=== PATIENT | female | born 1990 | race Two or more races ===

== ENCOUNTER 2017-10-11 18:59 | Emergency (ER) | payer OTHER ==
[~2017-10-11] VITALS: Ht 157.5 cm; Wt 72.4 kg
[2017-10-11 19:56] LABS: MICROSCOPIC INDICATED
[2017-10-11 20:04] LABS: CULTURE INDICATED? YES
[2017-10-11 20:07] LABS: BASOPHILS # (AUTO) 0.13 x10^3/uL (0-0.1); BASOPHILS % (AUTO) 1 % (0-1); EOSINOPHILS # (AUTO) 0.17 x10^3/uL (0-0.4); EOSINOPHILS % (AUTO) 2 % (1-7); LYMPHOCYTES # (AUTO) 2.37 x10^3/uL (1-3.4); LYMPHOCYTES % (AUTO) 22 % (22-44); MD NO; MEAN CORPUSCULAR HEMOGLOBIN 27.8 pg (27.0-34.8); MEAN CORPUSCULAR HGB CONC 33.7 g/dL (32.4-35.8); MEAN CORPUSCULAR VOLUME 82.5 fL (80-100); MEAN PLATELET VOLUME 7.9 fL (7.4-10.4); MONOCYTES # (AUTO) 0.92 x10^3/uL (0.2-0.8); MONOCYTES % (AUTO) 9 % (2-9); NEUTROPHILS % (AUTO) 66 % (42-75); PLATELET COUNT 342 x10^3/uL (130-400); RED BLOOD COUNT 4.77 x10^6/uL (3.82-5.3); RED CELL DISTRIBUTION WIDTH 13.6 % (9.6-15.2)
[2017-10-11 20:18] LABS: ALBUMIN 4.1 g/dL (3.4-5.0); ANION GAP 5 mmol/L (5-15); CHLORIDE 107 mmol/L (98-107)
[2017-10-11 20:21] LABS: ALANINE AMINOTRANSFERASE 35 U/L (12-78); ALKALINE PHOSPHATASE 90 U/L (45-117); BILIRUBIN,TOTAL 0.7 mg/dL (0.2-1.0); CREATININE 0.68 mg/dL (0.55-1.02); TOTAL PROTEIN 7.8 g/dL (6.4-8.2)
[2017-10-11] MEDS ORDERED: ONDANSETRON 2MG/ML, 2ML ONE (20:40)
[2017-10-11] MEDS ORDERED: ONDANSETRON 2MG/ML, 2ML IVPush ONE (21:00)
[2017-10-11 21:29] VITALS: BP 114/64
== END 2017-10-11 21:31 | disposition home or self-care (01) ==
LOC: ED 19:56
DX: R31.9 Hematuria, unspecified (principal)
CPT/HCPCS: 36415; 76770; 80053; 81001; 81025; 83690; 85025; 87086; 96374; 99285; J2405

== ENCOUNTER → 2018-10-12 | Outpatient (CLI) | payer OTHER | END | disposition home or self-care (01) | LOC: RAD 16:42 | PROVIDERS: ATTEND Family Medicine | DX: M54.2 Cervicalgia (principal) | CPT/HCPCS: 72050 ==

== ENCOUNTER → 2019-12-13 | Outpatient (CLI) | payer OTHER | END | disposition home or self-care (01) | LOC: CFH 13:55 | PROVIDERS: ATTEND Nurse Practitioner Family | DX: G43.109 Migraine with aura, not intractable, without status migrainosus (principal); J34.1 Cyst and mucocele of nose and nasal sinus | CPT/HCPCS: 70450 ==

== ENCOUNTER 2020-04-02 07:17 | Emergency (ER) | payer OTHER ==
[~2020-04-02] VITALS: Ht 154.9 cm; Wt 79.0 kg
[2020-04-02] MEDS ORDERED: MONT4GRA2 PO (07:27)
[2020-04-02] MEDS ORDERED: FLUT1AER INH (07:27)
[2020-04-02] MEDS ORDERED: NORT10CA PO (07:27)
[2020-04-02] MEDS ORDERED: KETOROLAC 30 MG/1 ML IVPush ONE (08:00)
[2020-04-02] MEDS ORDERED: SODIUM CHLORIDE FLUSH 10ML SYR IVF ONE (08:00)
[2020-04-02] MEDS ORDERED: ONDANSETRON 2MG/ML, 2ML IVPush ONE (08:00)
[2020-04-02] MEDS ORDERED: HYDROmorphone 1 MG/ML, 1ML INJ ONE ×2 (08:05→11:13)
[2020-04-02] MEDS ORDERED: ONDANSETRON 2MG/ML, 2ML ONE (08:05)
[2020-04-02] MEDS ORDERED: KETOROLAC 30 MG/1 ML ONE (08:05)
[2020-04-02 08:37] LABS: BASOPHILS # (AUTO) 0.09 x10^3/uL (0-0.1); BASOPHILS % (AUTO) 1 % (0-1); EOSINOPHILS # (AUTO) 0.25 x10^3/uL (0-0.4); EOSINOPHILS % (AUTO) 3 % (1-7); LYMPHOCYTES # (AUTO) 1.84 x10^3/uL (1-3.4); LYMPHOCYTES % (AUTO) 21 % (22-44); MD NO; MEAN CORPUSCULAR HEMOGLOBIN 26.3 pg (27.0-34.8); MONOCYTES # (AUTO) 0.79 x10^3/uL (0.2-0.8); MONOCYTES % (AUTO) 9 % (2-9); NEUTROPHILS # (AUTO) 5.65 x10^3/uL (1.8-6.8); NEUTROPHILS % (AUTO) 66 % (42-75); PLATELET COUNT 340 x10^3/uL (130-400); RED BLOOD COUNT 5.07 x10^6/uL (3.82-5.3); RED CELL DISTRIBUTION WIDTH 13.7 % (9.6-15.2)
[2020-04-02 08:47] LABS: ALANINE AMINOTRANSFERASE 57 U/L (12-78); ANION GAP 8 mmol/L (5-15); CALCIUM 9.4 mg/dL (8.5-10.1); CHLORIDE 110 mmol/L (98-107); CREATININE 0.85 mg/dL (0.55-1.02)
[2020-04-02] MEDS: HYDROmorphone 2 MG/ML, 1ML IVPush PRN ×2 (08:49→11:15)
[2020-04-02 08:51] LABS: ALKALINE PHOSPHATASE 126 U/L (45-117); BILIRUBIN,TOTAL 0.7 mg/dL (0.2-1.0); TOTAL PROTEIN 7.7 g/dL (6.4-8.2)
--- NOTE | 2020-04-02 09:36 | NUR ---
PT RESTING CALMLY IN BED WITH EYES CLOSED. PT STATED SHE FEELS BETTER AFTER MEDS GIVEN. PT MOTHER AT BEDSIDE, WILL CONTINUE TO MONITOR.
[2020-04-02 09:46] LABS: MICROSCOPIC INDICATED
[2020-04-02 12:12] VITALS: BP 114/73
== END 2020-04-02 12:13 | disposition home or self-care (01) ==
LOC: ED 08:11
DX: N13.2 Hydronephrosis with renal and ureteral calculous obstruction (principal); R11.2 Nausea with vomiting, unspecified; R10.9 Unspecified abdominal pain
CPT/HCPCS: 36415; 74176; 80053; 81001; 84703; 85025; 87086; 96374; 96375; 96376; 99285; J1170; J1885; J2405

== ENCOUNTER → 2020-09-14 | Outpatient (CLI) | payer OTHER ==
[~2020-09-14] MED LIST: FLUT1AER INH; MONT4GRA2 PO; NORT10CA PO
[2020-09-14 11:47] LABS: ALBUMIN 3.9 g/dL (3.4-5.0); ANION GAP 7 mmol/L (5-15); CALCIUM 9.1 mg/dL (8.5-10.1); CHLORIDE 109 mmol/L (98-107)
[2020-09-14 12:03] LABS: ALANINE AMINOTRANSFERASE 125 U/L (12-78); ALKALINE PHOSPHATASE 154 U/L (45-117); CREATININE 0.73 mg/dL (0.55-1.02); FREE T4 (FREE THYROXINE) 1.05 ng/dL (0.76-1.46); TOTAL PROTEIN 7.5 g/dL (6.4-8.2)
== END | disposition home or self-care (01) ==
LOC: LAB 09:38
DX: R14.0 Abdominal distension (gaseous) (principal); K92.1 Melena; E66.9 Obesity, unspecified; R10.30 Lower abdominal pain, unspecified; Z83.49 Family history of other endocrine, nutritional and metabolic diseases
CPT/HCPCS: 36415; 80053; 84439; 84443; 84481

== ENCOUNTER 2020-10-31 08:14 | Outpatient (CLI) | payer OTHER ==
[2020-10-31 09:23] LABS: ALANINE AMINOTRANSFERASE 59 U/L (12-78); ANION GAP 4 mmol/L (5-15); CALCIUM 9.2 mg/dL (8.5-10.1); CHLORIDE 106 mmol/L (98-107); CREATININE 0.77 mg/dL (0.55-1.02)
[2020-10-31 09:25] LABS: ALKALINE PHOSPHATASE 132 U/L (45-117); BILIRUBIN,TOTAL 0.9 mg/dL (0.2-1.0); TOTAL PROTEIN 7.9 g/dL (6.4-8.2)
== END 2020-10-31 23:59 | disposition home or self-care (01) ==
LOC: LAB 08:14
PROVIDERS: ATTEND Internal Medicine Gastroenterology
DX: Z11.3 Encounter for screening for infections with a predominantly sexual mode of transmission (principal); R94.5 Abnormal results of liver function studies; R79.82 Elevated C-reactive protein (CRP); K92.1 Melena
CPT/HCPCS: 36415; 80053; 82784; 83516; 83986; 83993; 86140; 86255; 86704; 86706; 86708; 86803; 87046; 87329; 87340; 87427; 87493

== ENCOUNTER 2020-11-01 13:53 | Outpatient (CLI) | payer OTHER | END 2020-11-01 23:59 | disposition home or self-care (01) | LOC: CFH 13:53 | PROVIDERS: ATTEND Family Medicine | DX: R94.5 Abnormal results of liver function studies (principal) | CPT/HCPCS: 76700 ==

== ENCOUNTER → 2021-02-01 | Outpatient (CLI) | payer OTHER | END | disposition home or self-care (01) | LOC: RAD 07:41 | PROVIDERS: ATTEND Urology | DX: N20.0 Calculus of kidney (principal) | CPT/HCPCS: 76770 ==

== ENCOUNTER 2021-03-21 15:34 | Outpatient (CLI) | payer OTHER | END 2021-03-21 23:59 | disposition home or self-care (01) | LOC: CFH 15:34 | PROVIDERS: ATTEND Physician Assistant Surgical | DX: N20.0 Calculus of kidney (principal) | CPT/HCPCS: 74176 ==